=== PATIENT | female | born 1980 | race Caucasian/White ===

== ENCOUNTER 2021-12-19 14:26 | Emergency (ER) | payer MEDICAID ==
[~2021-12-19] VITALS: Ht 162.6 cm; Wt 67.1 kg
[2021-12-19 14:50] VITALS: BP 99/69
--- NOTE | 2021-12-19 15:15 | NUR ---
DR KONG AT BEDSIDE
[2021-12-19] MEDS ORDERED: KETOROLAC 30 MG/ML VIAL IM ONE (15:20)
--- NOTE | 2021-12-19 15:20 | NUR ---
41 y/o female c/o left sided chest pain x 2 hours. States pain came on suddenly and was not precipitated by any activity or strenous movement. Denies trauma or injury. Pain 7/10, constant, chest heaviness, made worse when prompting deep breath. States after experiencing cp, 5 minutes later her hands went numb and felt dizzy, was assisted by family to sitting position and passed out for a few seconds, denies head trauma. Reports taking "energy tea" this morning. Denies fever, chills, nvd, or pain anywhere else. Skin pink, warm, dry. Respirations even and unlabored. Head of bed elevated for comfort. pmh: anemia, fibroids all: pcn
--- NOTE | 2021-12-19 15:25 | NUR ---
LAB AT BEDSIDE
[2021-12-19 15:53] LABS: BASOPHILS % (AUTO) 0.4 % (0.0-2.0); EOSINOPHILS % (AUTO) 0.4 % (0.0-4.0); HEMATOCRIT 35.8 % (36-48); HEMOGLOBIN 11.6 g/dL (12.0-16.0); LYMPHOCYTES # (AUTO) 1.3 K/uL (2.5-16.5); LYMPHOCYTES % (AUTO) 11.9 % (20.5-51.1); MEAN CORPUSCULAR HEMOGLOBIN 27 pg (27-31); MEAN CORPUSCULAR HGB CONC 33 g/dL (33-37); MEAN CORPUSCULAR VOLUME 82.1 fL (80-94); MONOCYTES # (AUTO) 0.5 K/uL (0.8-1.0); MONOCYTES % (AUTO) 4.7 % (1.7-9.3); NEUTROPHILS # (AUTO) 9.4 K/uL (1.8-7.7); NEUTROPHILS % (AUTO) 82.6 % (42.2-75.2); PLATELET COUNT (AUTO) 228 K/uL (140-450); RED BLOOD CELL COUNT(AUTO) 4.36 MIL/uL (4.20-5.40); RED CELL DISTRIBUTION WIDTH 14.9 % (11.6-13.7); WHITE BLOOD COUNT (AUTO) 11.3 K/uL (4.8-10.8)
[2021-12-19 16:16] LABS: ALBUMIN 3.7 g/dL (3.4-5.0); ANION GAP 10.4 (8-16); ASPARTATE AMINOTRANSFERASE 15 U/L (15-37); CARBON DIOXIDE 27.6 mmol/L (21-32); CHLORIDE 103 mmol/L (98-107); CREATININE 0.7 mg/dL (0.6-1.3); GFR ARICAN-AMERICAN 120 mL/min (>90); GLUCOSE 92 mg/dL (74-106); SODIUM SERUM 137 mmol/L (136-145); TOTAL BILIRUBIN 0.3 mg/dL (0.0-1.0); UREA NITROGEN, BLOOD 15 mg/dL (7-18)
[2021-12-19 17:00] VITALS: BP 100/62
--- NOTE | 2021-12-19 17:00 | NUR ---
Patient discharged with v/s stable. Written and verbal after care instructions given and explained. Patient verbalized understanding. Ambulatory with steady gait. All questions addressed prior to discharge. Advised to follow up with PMD.
== END 2021-12-19 17:00 | disposition home or self-care (01) ==
LOC: MED 14:26
DX: R07.9 Chest pain, unspecified (principal); D64.9 Anemia, unspecified
CPT/HCPCS: 36415; 71045; 80053; 81002; 81025; 84484; 85025; 96372; 99284; J1885; Q0092

== ENCOUNTER 2023-01-07 15:37 | Emergency (ER) | payer MEDICAID ==
[~2023-01-07] VITALS: Ht 167.6 cm; Wt 62.6 kg
[2023-01-07 15:40] VITALS: BP 103/70; PULSE 88; RESP 16; TEMP 98.2; O2SAT 100
[2023-01-07] MEDS ORDERED: ACETAMINOPHEN 325 MG TAB PO ONE (16:30)
[2023-01-07] MEDS ORDERED: ACET-11169 PO (16:33)
== END 2023-01-07 16:40 | disposition home or self-care (01) ==
LOC: MED 15:37
DX: S92.351A Displaced fracture of fifth metatarsal bone, right foot, initial encounter for closed fracture (principal); X58.XXXA Exposure to other specified factors, initial encounter; Y93.89 Activity, other specified; Y92.89 Other specified places as the place of occurrence of the external cause; Y99.8 Other external cause status
CPT/HCPCS: 73610; 73630; 99284

== ENCOUNTER 2023-01-16 12:16 | Emergency (ER) | payer MEDICAID ==
[~2023-01-16] VITALS: Ht 167.6 cm; Wt 63.3 kg
[~2023-01-16 12:16] MED LIST: ACET-11169 PO
[2023-01-16 12:28] VITALS: BP 131/81; PULSE 81; RESP 18; TEMP 98.2; O2SAT 100
== END 2023-01-16 13:14 | disposition home or self-care (01) ==
LOC: MED 12:16
DX: S92.351A Displaced fracture of fifth metatarsal bone, right foot, initial encounter for closed fracture (principal); Z88.0 Allergy status to penicillin; Z79.899 Other long term (current) drug therapy; X58.XXXA Exposure to other specified factors, initial encounter; Y93.89 Activity, other specified; Y92.89 Other specified places as the place of occurrence of the external cause; Y99.8 Other external cause status
CPT/HCPCS: 99282